=== PATIENT | female | born 1990 | race Caucasian/White ===

== ENCOUNTER 2018-11-09 14:13 | Outpatient (CLI) | payer MEDICAID ==
[~2018-11-09] VITALS: Ht 160 cm; Wt 75.2 kg
[2018-11-09 14:32] VITALS: Ht 160 cm; Wt 75.2 kg
[2018-11-09] MEDS ORDERED: TERBUTALINE 1 MG/ML INJ SC ONE ×2 (16:30→17:00)
--- NOTE | 2018-11-09 17:36 | TRIAGE ---
OB Triage Datetime Report Generated by CPN: 11/09/2018 17:35 Datetime: 11/09/2018 17:28 Stage of : OB Triage Maternal Assessment Level of Consciousness: Fully Conscious DTR's/Clonus: DTRs 1+ Headache: Denies Breath Sounds, Left: Clear and Equal Breath Sounds, Right: Clear and Equal Nausea/Vomiting: Denies RUQ Epigastric Pain: Denies Monitor Mode: External Resting Tone [place]: Relaxed Heart Rate FHR Baseline Rate: 120 Monitor Mode: External US Variability: Moderate 6-25 bpm Accelerations: 15X15 Decelerations: None Category: Category I Pain Assessment Pain Scale: 5 Pain Presence: Intermittent Pain Type: Cramping Pain Location: Back Pain Goal: 3 Vaginal Exam Membrane Status: Intact Datetime: 11/09/2018 17:09 Pain Assessment Pain Scale: 4 Pain Presence: Intermittent Pain Type: Cramping Pain Location: Back Pain Goal: 3 Pain Assessment Comments: PT STATES FEELING UC'S AT THIS POINT ABDOMEN IS SOFT. NO UC'S FELT OR SEE M IN MONITOR. Datetime: 11/09/2018 17:00 Stage of : OB Triage Maternal Assessment Level of Consciousness: Fully Conscious DTR's/Clonus: DTRs 1+ Headache: Denies Breath Sounds, Left: Clear and Equal Breath Sounds, Right: Clear and Equal Nausea/Vomiting: Denies RUQ Epigastric Pain: Denies Monitor Mode: External Resting Tone [place]: Relaxed Heart Rate FHR Baseline Rate: 120 Monitor Mode: External US Variability: Moderate 6-25 bpm Accelerations: 15X15 Decelerations: None Category: Category I Pain Assessment Pain Scale: 5 Pain Presence: Intermittent Pain Type: Cramping Pain Location: Back Pain Goal: 3 Vaginal Exam Membrane Status: Intact Datetime: 11/09/2018 16:00 Stage of : OB Triage Maternal Assessment Level of Consciousness: Fully Conscious DTR's/Clonus: DTRs 1+ Headache: Denies Breath Sounds, Left: Clear and Equal Breath Sounds, Right: Clear and Equal Nausea/Vomiting: Denies RUQ Epigastric Pain: Denies Labor Evaluation Frequency: IRREGULAR Monitor Mode: External Duration (sec)2399: 50-70 Quality: Mild Pattern: Normal: <= 5 Contractions in 10 Minutes Resting Tone [place]: Relaxed Heart Rate FHR Baseline Rate: 115 Monitor Mode: External US Variability: Moderate 6-25 bpm Accelerations: 15X15 Decelerations: None Category: Category I Pain Assessment Pain Scale: 5 Pain Presence: Intermittent Pain Type: Cramping Pain Location: Back Pain Goal: 3 Vaginal Exam Membrane Status: Intact Datetime: 11/09/2018 15:00 Stage of : OB Triage Maternal Assessment Level of Consciousness: Fully Conscious DTR's/Clonus: DTRs 1+ Headache: Denies Breath Sounds, Left: Clear and Equal Breath Sounds, Right: Clear and Equal Nausea/Vomiting: Denies RUQ Epigastric Pain: Denies Monitor Mode: External Duration (sec)2399: 50-70 Quality: Mild Pattern: Normal: <= 5 Contractions in 10 Minutes Resting Tone [place]: Relaxed Heart Rate FHR Baseline Rate: 140 Monitor Mode: External US Variability: Moderate 6-25 bpm Accelerations: 15X15 Decelerations: None Category: Category I Pain Assessment Pain Scale: 5 Pain Presence: Intermittent Pain Type: Cramping Pain Location: Back Pain Goal: 3 Vaginal Exam Membrane Status: Intact Datetime: 11/09/2018 14:44 Stage of : OB Triage Maternal Assessment Level of Consciousness: Fully Conscious DTR's/Clonus: DTRs 1+ Headache: Denies Blurred Vision: No Respiratory Effort: Unlabored Breath Sounds, Left: Clear and Equal Breath Sounds, Right: Clear and Equal Nausea/Vomiting: Denies RUQ Epigastric Pain: Denies Facial Edema: None Labor Evaluation Frequency: X3 Monitor Mode: External Duration (sec)2399: 50-70 Quality: Mild Pattern: Normal: <= 5 Contractions in 10 Minutes Resting Tone [place]: Relaxed Heart Rate FHR Baseline Rate: 140 Monitor Mode: External US Variability: Moderate 6-25 bpm Accelerations: 15X15 Decelerations: None Category: Category I Pain Assessment Pain Scale: 5 Pain Presence: Intermittent Pain Type: Cramping Pain Location: Back Pain Goal: 3 Vaginal Exam Membrane Status: Intact Datetime: 11/09/2018 14:33 Assessment Type: Triage Maternal Assessment Level of Consciousness: Fully Conscious DTR's/Clonus: DTRs 2+; No Clonus Headache: Denies Blurred Vision: No Respiratory Effort: Unlabored; Regular Rhythm; Equal Expansion Breath Sounds, Left: Clear and Equal Breath Sounds, Right: Clear and Equal Nausea/Vomiting: Denies RUQ Epigastric Pain: Denies Lower Extremities Edema: None Degree: None Upper Extremities Edema: None Degree: None Facial Edema: None Fall Risk Assessment History of Falling: (0) No Secondary Diagnosis: (0) No Ambulatory Aid: (0) Bedrest/Nurse Assist IV Therapy: (0) No Gait: (0) Normal/Bedrest/Immobile Mental Status: (0) Oriented to Own Ability Fall Score: 0 Fall Risk Score Definition: No Risk: No action required Datetime: 11/09/2018 14:20 Stage of : OB Triage Datetime: 11/09/2018 14:10 Time of Arrival: 11/09/2018 14:10 EGA: 33.2 Arrived By: Ambulatory Arrived From: Home Chief Complaint: PT CAM EIN C/O UC'S Movement: Present Contractions: Irregular Time Contractions Began: 11/08/2018 13:00 Rupture of Membranes: Denies Vaginal Bleeding: None Vaginal Discharge: Denies Recent Sexual Intercouse: Denies Abdominal Trauma: Not Applicable Patient Complaints: Contractions Additional Patient Complaints: NONE Time Provider Notified: 11/09/2018 14:20 Provider Notified: LAURA Initial Plan: MONITOR, CX LENGHT, BPP
--- NOTE | 2018-11-09 17:40 | PN ---
Triage Information Date/Time November 09, 2018 Reason for visit: Uterine contractions Weeks of Gestation 33w 2d /Para 3/2 Diabetes: none Hypertention: none Additional information Pt with a twin gestation and came in with c/o contractions. She denies any bleeding or leaking. +FM x 2. PMHx: none. PSHX: x 2. NKDA. Objective 100/65 T=98.4 Heart Rate: 130's (twin A; Twin B with a baseline of 140 BPM.) Heart Rate Comments Twin A with accels to 150 BPM and no decels. Twin B with accels to 160 BPM and no decels. Contractions: >10 Minutes Apart Results/Medications Imaging Results Cervical length is 4.4 cm and closed. BPP 8/8 x 2. Fluid levels normal for both. Disposition: Discharge Assessment/Plan A: IUP at 33w 2d, Twin gestation. False labor. P: Pt was given p.o. hydration and terbutaline x 2 and there are no more visible contractions and the pt reports feeling much better and feels comfortable going home. PTL precautions reviewed. Pt to take it easy at home and limit cleaning, etc until she sees her doctor, as scheduled, on 11/13. NICCI SANCHEZ MD Nov 09, 2018 17:40
== END 2018-11-09 17:31 | disposition home or self-care (01) ==
LOC: OBT 14:13 → L-D 14:15 → OBT 17:31
PROVIDERS: ATTEND Specialist
DX: O47.1 False labor at or after 37 completed weeks of gestation (principal); O30.003 Twin pregnancy, unspecified number of placenta and unspecified number of amniotic sacs, third trimester; Z3A.33 33 weeks gestation of pregnancy
CPT/HCPCS: 76817; 76818; J3105; Z7500; G0463

== ENCOUNTER 2018-12-09 18:35 | Inpatient (IN) | payer MEDICAID ==
[~2018-12-09] VITALS: Ht 160 cm; Wt 77.9 kg
[2018-12-09 19:00] VITALS: Ht 160 cm; Wt 77.9 kg
[2018-12-09] MEDS ORDERED: MISOPROSTOL 200 MCG TAB PR PRN ×2 (20:00→22:30)
[2018-12-09] MEDS ORDERED: METHYLERGONOVINE 0.2 MG INJ IM PRN (20:00)
[2018-12-09] MEDS ORDERED: CARBOPROST 250 MCG INJ IM PRN (20:00)
[2018-12-09] MEDS ORDERED: CEFAZOLIN 2 GM/50 ML (PMX) 50 ML IVPB SCH (20:00)
[2018-12-09] MEDS ORDERED: OXYTOCIN 30 UNITS/LR 500 ML IV SCH (20:00)
[2018-12-09] MEDS ORDERED: AMPICILLIN 2 GM/NS (PMX) 100 ML IV SCH (20:00)
[2018-12-09] MEDS ORDERED: OXYTOCIN 30 UNITS/LR 500 ML IV PRN (20:00)
[2018-12-09] MEDS: LACTATED RINGER'S 1,000 ML IV SCH (21:30)
[2018-12-09] MEDS ORDERED: PREN-99 PO (21:31)
[2018-12-09] MEDS ORDERED: FER325 PO (21:31)
--- NOTE | 2018-12-09 21:37 | PREAC ---
Date/Time of Note Date/Time of Note DATE: 12/09/18 TIME: 21:36 Anesthesia Eval and Record Evaluation Time Pre-Procedure Interview DATE: 12/09/18 TIME: 21:36 Age 28 Sex female NPO: 8 hrs Preoperative diagnosis twin Planned procedure c section Past Medical History Past Medical History: Includes : Gestational age: (37.4) Surgery & Anesthesia Issues No known issue Meds Anticoagulation: No Beta [place] within 24 hr: No Reason Beta [place] not given: Pt. not on B-[place] Reported Medications Ferrous Sulfate* (Ferrous Sulfate*) 325 Mg Tabec, 325 MG PO DAILY, TAB 12/09/18 Vit #76/Iron,Carb/FA (Pnv 29-1 Tablet) 1 Each Tablet, 1 EACH PO, TAB 12/09/18 Current Medications Ampicillin 100 ml @ 100 mls/hr ONCE IV Last administered on 12/09/18at 20:33; Admin Dose 100 MLS/HR; Start 12/09/18 at 20:00 Cefazolin Sodium/ Dextrose 50 ml @ 100 mls/hr ONCE IVPB ; Start 12/09/18 at 20:00 Oxytocin/Lactated Ringer's 500 ml @ 125 mls/hr POST IV ; Start 12/09/18 at 20:00 Oxytocin/Lactated Ringer's 500 ml @ 0 mls/hr ONCE PRN IV .VAGINAL BLEEDING; Start 12/09/18 at 20:00 Methylergonovine Maleate (Methergine) 0.2 mg ONCE PRN IM .VAGINAL BLEEDING; Start 12/09/18 at 20:00 Carboprost Tromethamine (Hemabate) 250 mcg ONCE PRN IM .VAGINAL BLEEDING; Start 12/09/18 at 20:00 Misoprostol (Cytotec) 1,000 mcg ONCE PRN IA .VAGINAL BLEEDING; Start 12/09/18 at 20:00 Lactated Ringer's 1,000 ml @ 125 mls/hr Q8H IV Last administered on 12/09/18at 21:30; Admin Dose 125 MLS/HR; Start 12/09/18 at 21:00 Meds reviewed: Yes Allergies Coded Allergies: No Known Allergy (Unverified , 12/09/18) Allergies Reviewed: Yes Labs/Studies Labs Reviewed: Reviewed by anesthesiologist Result Diagram: 12/09/18201412/09/182014 Laboratory Tests 12/09/18 20:15 Blood Bank Test 12/09/18 20:15 Antibody Screen NEGATIVE Blood Type O POSITIVE Rh Immune Globulin Candidate NO test: Positive Studies: ECG (n/a), CXR (n/a) Pre-procedure Exam Airway: Adequate mouth opening Mallampati: Mallampati I Teeth: Normal Lung: Normal Heart: Normal ASA Physical Status ASA physical status: 2 Emergency: None Planned Pain Management Sub-arachniod narcotics Pre-operative Attestations Prior to commencing anesthesia and surgery, the patient was re-evaluated, there was verification of: *The patient's identity *The results of appropriate recent lab work and preoperative vital signs *The above evaluation not changing prior to induction *Anesthetic plan, risk benefits, alternative and complications discussed with patient/family; questions answered; patient/family understands, accepts and wishes to proceed. PABLO MAE MD Dec 09, 2018 21:37
[2018-12-09] MEDS ORDERED: CITRIC ACID/NA CITRATE 30 ML CUP PO ONE (22:00)
[2018-12-09] MEDS ORDERED: LACTATED RINGER'S 1,000 ML IV SCH (22:09)
--- NOTE | 2018-12-09 22:09 | HP ---
Date/Time of Note Date/Time of Note DATE: 12/09/18 TIME: 22:05 OB - History Hx of Present Free Text/Dictation 28 YO with twin gestations (Di-Di), EDC 12/26/2018 with IUP at 37.5 weeks reports to Triage with contractions and headache. Patient also has history of previous deliveries x 2, who desires to have repeat delivery. I discussed with the patient the risks, benefits, indications, and alternatives of procedure including but not limited to risks of infection, bleeding, damage to other organs, bowel, bladder, hernia formation, scar formation, possibility of blood transfusion, possible need for emergency hysterectomy. She was allowed to ask questions. All her questions were answered. Informed consent has been obtained. she denies LOF per vagina or vaginal bleeding or visual changes or RUQ pain. she reports both babies moving well. Care: Good Care Ultrasounds: Normal mid trimester US Obstetrical Complications: Other (twins) Medical Complications: None Past Family/Social History * Past Medical, Surgical, Family and Obstetric Histories reviewed from chart. OB Admission Exam Physical Exam HEENT: WNL Heart: Rhythm Normal Lungs: Clear, Equal Abdomen: WNL Extremities: Normal Reflexes: Normal Cervical Dilatation: Fingertip Last 72 hours Lab Results CBC & BMP 12/09/18 20:15 Liver Function Test 12/09/18 20:15 Alanine Aminotransferase (ALT/SGPT) 13 Albumin 3.6 Alkaline Phosphatase 196 H Aspartate Amino Transf (AST/SGOT) 17 Direct Bilirubin 0.00 Total Protein 6.6 OB Assessment/Plan Other Assessment: Twins at 37.5 weeks with h/o 2 prior deliveries with contractions Plan: Section MIKE AL MD Dec 09, 2018 22:09
[2018-12-09] MEDS ORDERED: morphine SULFATE/PF (10 MG/10 ML) INJ ONE (22:17)
[2018-12-09] MEDS ORDERED: KETOROLAC 30 MG INJ ONE (22:17)
[2018-12-09] MEDS ORDERED: METOCLOPRAMIDE 10 MG INJ ONE (22:17)
[2018-12-09] MEDS ORDERED: ONDANSETRON 4 MG INJ ONE (22:17)
[2018-12-09] MEDS ORDERED: OXYCODONE/ACETAMINOPHEN (5/325) TAB PO PRN (22:30)
[2018-12-09] MEDS ORDERED: NA PHOSPHATE/BIPHOS 133 ML ENEMA PR PRN (22:30)
[2018-12-09] MEDS ORDERED: LANOLIN HPA 1 PKT TOP PRN (22:30)
[2018-12-09] MEDS ORDERED: EPHEDrine SULFATE 50 MG/5 ML SYG ONE (22:47)
[2018-12-09] MEDS ORDERED: EPINEPHrine 0.1 MG/ML SYG ONE (23:05)
[2018-12-09] MEDS ORDERED: OXYTOCIN 30 UNITS/LR 500 ML IV ONE (23:11)
--- NOTE | 2018-12-09 23:28 | OPR ---
Date/Time of Note Date/Time of Note DATE: 12/09/18 TIME: 23:23 Operative Report Procedure Date: Dec 09, 2018 Preoperative Diagnosis Twins IUP 37.5 weeks Labor h/o prior Deliveries x 2 Postoperative Diagnosis Same Operation/Procedure Performed Repeat Delivery Surgeon Wendi Molina MD Graffiti Cleaner Dr. Abhi Kim Anesthesia Type: spinal Estimated Blood Loss: other (800 ml) Transfusion none Specimen placenta Grafts/Implants none Tubes/Drains Osuna Cath Complications none Pt Condition Post Procedure: stable Disposition: PACU Procedure Description The risks, benefits, indications, alternatives of procedure including, but not limited to risk of infection, bleeding, damage to other organs, bowel, bladder, hernia formation, scar formation, possibility of blood transfusions discussed with patient. She was allowed to ask questions. All her questions were an swered. Informed consent was obtained. DESCRIPTION OF PROCEDURE: She was taken to the operating room. Spinal anesthesia was induced. She was prepped and draped in the usual sterile fashion. Surgical time out one. Anesthesia was tested to be adequate. With permission from anesthesiologist, a knife was used to make a Pfannenstiel skin incision. The incision was taken down in layers. The fascia was cut, undermined and from the underlying muscle using sharp and blunt dissection. All the bleeders were cauterized. Peritoneum was entered bluntly. A low transverse incision was developed over the uterus. Amniotic fluid was clear and adequate for both twins. Twin A was delivered in vertex presentation without any difficulty. Twin B was delivered Breech without any difficulty. The cords were clamped and cut, handed to awaiting team. Placenta was then delivered. Uterus was exteriorized, wrapped around a moist lap. Inside uterus was cleaned using a dry lap. All residual membranes were removed. The uterine incision was then closed using #1 Monocryl in 2 layers. The uterus was inserted back inside the abdominal cavity. Irrigation was done carefully. Careful evaluation of the uterine incision revealed no further bleeding. The peritoneum and rectus muscles and fascia were evaluated. All bleeders cauterized. Peritoneum was closed using 2-0 Monocryl. At this time, the count was correct. Rectus muscle was reapproximated using 2-0 Monocryl. Rectus fascia was closed using #1 Vicryl. Subcutaneous tissue was cleaned and irrigated. All bleeders cauterized and the skin closed using 4-0 Monocryl. All counts correct. WENDI MOLINA MD Dec 09, 2018 23:28
[2018-12-09] MEDS ORDERED: ONDANSETRON 4 MG INJ IV PRN ×2 (23:30)
[2018-12-09] MEDS ORDERED: MEPERIDINE 25 MG INJ IV PRN (23:30)
[2018-12-09] MEDS ORDERED: DIPHENHYDRAMINE 50 MG INJ IV PRN ×2 (23:30)
[2018-12-09] MEDS ORDERED: KETOROLAC 30 MG INJ IV PRN (23:30)
[2018-12-09] MEDS ORDERED: NALOXONE (0.4 MG/ML) INJ IV PRN (23:30)
[2018-12-09] MEDS ORDERED: morphine (1 MG/ML) 10ML SYRINGE IV PRN ×3 (23:30)
[2018-12-09] MEDS ORDERED: morphine 2 MG INJ IV PRN ×3 (23:30)
[2018-12-10] MEDS ORDERED: IBUPROFEN 600 MG TAB PO SCH
[2018-12-10 02:50] VITALS: BP 99/64; PULSE 58; RESP 18
[2018-12-10] MEDS: LACTATED RINGER'S 1,000 ML IV SCH ×3 (05:00→17:27)
[2018-12-10] MEDS: KETOROLAC 30 MG INJ IV PRN ×2 (06:40→14:04)
[2018-12-10 08:00] VITALS: BP 96/53; PULSE 76; RESP 20
--- NOTE | 2018-12-10 08:20 | PAC ---
Date/Time of Note Date/Time of Note DATE: 12/10/18 TIME: 08:19 Post-Anesthesia Notes Post-Anesthesia Note Last documented vital signs Vital Signs Date Temp Pulse Resp B/P (MAP) Pulse Ox O2 O2 Flow FiO2 Time Delivery Rate 12/10/18 98.4 58 18 99/64 (76) 98 Room Air 02:50 Activity: WNL Respiratory function: WNL Cardiovascular function: WNL Mental status: Baseline Pain reasonably controlled: Yes Hydration appropriate: Yes Nausea/Vomiting absent: No PABLO MAE MD December 10, 2018 08:20
--- NOTE | 2018-12-10 08:20 | OPPN ---
Date/Time of Note Date/Time of Note DATE: 12/10/18 TIME: 08:20 Anesthesia Follow up Anesthesia Follow up Last documented vital signs Vital Signs Date Temp Pulse Resp B/P (MAP) Pulse Ox O2 O2 Flow FiO2 Time Delivery Rate 12/10/18 98.4 58 18 99/64 (76) 98 Room Air 02:50 Respiratory function: WNL Cardiovascular function: WNL Comments A 28 year female pod#1 under spinal and duramorph for post op pain. No pain, itching, N/V, headache, neural deficit. PABLO MAE MD December 10, 2018 08:20
[2018-12-10] MEDS: SENNA/DOCUSATE NA (8.6MG/50MG) TAB PO SCH ×2 (09:37→21:26)
[2018-12-10 12:00] VITALS: BP 104/71; PULSE 67; RESP 19
[2018-12-10 16:00] VITALS: BP 102/64; PULSE 62; RESP 20
[2018-12-10 20:00] VITALS: BP 95/62; PULSE 75; RESP 18
--- NOTE | 2018-12-10 20:56 | PN ---
Date/Time of Note Date/Time of Note DATE: 12/10/18 TIME: 20:51 OB Subjective Subjective Subjective POD#1 Patient is doing well. She denies nausea, vomiting, shortness of breath, chest pain, headache. She has been ambulating without difficulty, tolerating regular diet. Pain is well controlled on current medications OB Objective Objective Objective Vital Signs Date Temp Pulse Resp B/P (MAP) Pulse Ox O2 O2 Flow FiO2 Time Delivery Rate 12/10/18 98.6 62 20 102/64 98 Room Air 16:00 (77) General: AAO X 3, comfortable, NAD, appropriate mood and affect. ABD: +BS. Soft, non-tender. Uterus 2 cm below umbilicus Incision: Clear, dry, intact. No erythema, drainage or induration. Staple in place * Flank: No CVA tenderness (B/L) LE: Mild edema. No clubbing, cyanosis, thigh or calf tenderness (B/L). Homans 'sign is negative OB Assessment/Plan Other plan: 28 years old 3 para 2-0-0-4 (current with diamniotic/dichorionic twin) s/p repeat delivery delivery POD#1 - AF, VSS - Babies are doing well, at bed side. She is bonding well - Continue care MARIA INES RANKIN December 10, 2018 20:56
[2018-12-10] MEDS: IBUPROFEN 600 MG TAB PO SCH (23:41)
[2018-12-11 04:00] VITALS: BP 88/54; PULSE 64; RESP 20
[2018-12-11] MEDS: LACTATED RINGER'S 1,000 ML IV SCH ×3 (05:00→21:00)
[2018-12-11] MEDS: IBUPROFEN 600 MG TAB PO SCH ×4 (05:57→23:45)
--- NOTE | 2018-12-11 07:58 | QN ---
Documentation Comment s/p c/s Subjective: no complaint Objective: Afebrile, VSS NAD A&O Abdomen: soft, appropriate tender Incision: no sign of bleeding/infection mild lochia Extremity: 1+ edema bilaterally Assessment: S/p Repeat C/S with twins. POD # 2 Recovering Well Plan: current care MIKE AL MD December 11, 2018 07:58
[2018-12-11 08:00] VITALS: BP 88/57; PULSE 68; RESP 16
[2018-12-11] MEDS: SENNA/DOCUSATE NA (8.6MG/50MG) TAB PO SCH ×2 (08:31→20:47)
[2018-12-11] MEDS: OXYCODONE/ACETAMINOPHEN (5/325) TAB PO PRN ×3 (08:32→19:47)
--- NOTE | 2018-12-11 09:41 | DS ---
Date/Time of Note Date/Time of Note DATE: 12/11/18 TIME: 09:41 Obstetrical Discharge Record Final Diagnosis Final Diagnosis: Term delivered Section Section: Repeat Complications Multiple Gestation Augmentation: No Induction: No Rupture of Membranes: No Condition on Discharge Physical Assessment Voiding: Yes Bowel Movement: Yes Breast: Soft, non-tender, Filling Fundus: Firm Abdomen and Incision: soft, appropriate tenderness Calf Tenderness: No Patient Condition: Good MIKE AL MD December 11, 2018 09:41
[2018-12-11 16:00] VITALS: BP 105/65; PULSE 66; RESP 18
[2018-12-11 19:20] VITALS: BP 111/79; PULSE 65; RESP 19
[2018-12-12 04:00] VITALS: BP 100/67; PULSE 59; RESP 18
[2018-12-12] MEDS: LACTATED RINGER'S 1,000 ML IV SCH (05:00)
[2018-12-12] MEDS: IBUPROFEN 600 MG TAB PO SCH ×2 (05:38→13:39)
[2018-12-12 08:00] VITALS: BP 93/63; PULSE 68; RESP 18
[2018-12-12] MEDS: OXYCODONE/ACETAMINOPHEN (5/325) TAB PO PRN (08:27)
[2018-12-12] MEDS: SENNA/DOCUSATE NA (8.6MG/50MG) TAB PO SCH (08:27)
[2018-12-12] MEDS ORDERED: DIPHTH/TET/ACEL PERTUSS (ADULT) 0.5 ML VIAL IM* ONE (09:00)
[2018-12-12] MEDS ORDERED: MEASLES,MUMPS,RUBELLA VACCINE INJ SC* ONE (09:00)
--- NOTE | 2018-12-13 16:53 | DELSUM ---
Delivery Summary A-C Datetime Report Generated by CPN: 12/13/2018 16:53 DELIVERY PERSONNEL Keyboard Specialist: Brandt, Nirali MATERNAL INFORMATION Delivery Anesthesia: Spinal Medications in Delivery: SEE ANESTHESIA RECORD Delivery QBL (ml): 800 Placenta Cultured: No Maternal Complications: None LABOR SUMMARY EDC: 12/26/2018 00:00 No. Babies in Womb: 2 Attempted: No Labor Anesthesia: None LABOR INFORMATION Reason for Induction: Not Applicable Oxytocin: N/A Group B Beta Strep: Negative Antibiotics # of Doses: X2 Antibiotics Time of Last Dose: 12/09/2018 22:24 Steroids Given: None Reason Steroids Not Administered: Not Applicable MEMBRANES Membranes Rupture Method: Artificial Rupture of Membranes: 12/09/2018 22:49 Length of Rupture (hr): 0.02 Amniotic Fluid Color: Clear Amniotic Fluid Amount: Moderate Amniotic Fluid Odor: None STAGES OF LABOR Stage 3 hr: 0 Stage 3 min: 5 CSECTION DELIVERY Primary Indication: Repeat Elective Secondary Indication: N/A CSection Urgency: Elective CSection Incidence: Repeat Labor: Labor Elective: Elective CSection Incision: Lower Uterine Transverse BABY A INFORMATION Delivery Date/Time: 12/09/2018 22:50 Method of Delivery: Born in Route : No : N/A Forceps: N/A Vacuum Extraction: N/A Shoulder Dystocia : N/A SHOULDER DYSTOCIA BABY A Delivery Date/Time: 12/09/2018 22:50 PRESENTATION/POSITION BABY A Presentation: Cephalic Cephalic Presentation: Vertex Vertex Position: Left Occipital Anterior Breech Presentation: N/A PLACENTA INFORMATION BABY A Placenta Delivery Time : 12/09/2018 22:55 Placenta Method of Delivery: Expressed Placenta Status: Delivered SCORES BABY A Heart Rate 1 min: >100 bpm Resp Effort 1 min: Good Cry Reflex Irritability 1 min: Cough/Sneeze/Pulls Away Muscle Tone 1 min: Active Motion Color 1 min: Blue/Pale Resuscitation Effort 1 min: Tactile Stimulation; PPV/NCPAP SCORE 1 MIN: 8 Heart Rate 5 min: >100 bpm Resp Effort 5 min: Good Cry Reflex Irritability 5 min: Cough/Sneeze/Pulls Away Muscle Tone 5 min: Active Motion Color 5 min: Body [place], Extremit Blue Resuscitation Effort 5 min: Tactile Stimulation SCORE 5 MIN: 9 INFANT INFORMATION BABY A Gestational Age at Delivery: 37.4 Gestational Status: Early Term- 37- 38.6 Weeks Infant Outcome : Liveborn Infant Condition : Stable Infant Sex: Female IDENTIFICATION/MEDS BABY A ID Band Number: [id number] ID Band Location: Right Leg; Left Arm Sensor Applied: Yes Sensor Number: [id number] Sensor Location : Cord Clamp Vitamin K Given : Not Given Erythromycin Given: Not Given WEIGHT/LENGTH BABY A Birthweight (gm): 2815 Infant Weight (lb): 6 Weight (oz): 3 Infant Length (in): 18.75 Infant Length (cm): 47.63 CORD INFORMATION BABY A No. Cord Vessels: 3 Nuchal Cord : N/A Nuchal Cord- Other: X1 AROUND R LEG Cord Blood Taken: Yes Infant Suction: Mouth; Nose ASSESSMENT BABY A Infant Complications: Multiple Variable Decels Physical Findings at Delivery: Within Normal Limits Respirations: Appears Normal Routing Equipment Tender/ALS Called : Yes Infant Care By: ARNALDO CARY Transferred To: Remains with Mother BABY B INFORMATION Infant Delivery Date/Time: 12/09/2018 22:51 Method of Delivery : Born in Route : No : N/A Forceps : N/A Vacuum Extraction: N/A Shoulder Dystocia : N/A SHOULDER DYSTOCIA BABY B Infant Delivery Date/Time: 12/09/2018 22:51 PRESENTATION/POSITION BABY B Presentation : Breech Cephalic Position : N/A Breech Position: Balaji ROM/PLACENTA INFO BABY B Rupture of Membranes: 12/09/2018 22:51 Length of Rupture (hr): 0.00 Placenta Delivery Time : 12/09/2018 22:55 Placenta Method of Delivery: Expressed Placental Status : Delivered SCORES BABY B Heart Rate 1 min: >100 bpm Resp Effort 1 min: Good Cry Reflex Irritability 1 min: Cough/Sneeze/Pulls Away Muscle Tone 1 min: Active Motion Color 1 min: Body [place], Extremit Blue Resuscitation Effort 1 min: Tactile Stimulation SCORE 1 MIN: 9 Heart Rate 5 min: >100 bpm Resp Effort 5 min: Good Cry Reflex Irritability 5 min: Cough/Sneeze/Pulls Away Muscle Tone 5 min: Active Motion Color 5 min: Body [place], Extremit Blue Resuscitation Effort 5 min: Tactile Stimulation SCORE 5 MIN: 9 INFORMATION BABY B Gestational Age at Delivery: 37.4 Gestational Status : Early Term- 37- 38.6 Weeks Infant Outcome : Liveborn Infant Condition : Stable Infant Sex : Female IDENTIFICATION/MEDS BABY B ID Band Number : [id number] ID Band Location : Right Leg; Left Arm Sensor Applied: Yes Sensor Number : [id number] Sensor Location : Cord Clamp Vitamin K Given : Not Given Erythromycin Given : Not Given WEIGHT/LENGTH BABY B Birthweight (gm): 2560 Infant Weight (lb) : 5 Weight (oz): 10 Infant Length (in): 18.50 Length (cm): 46.99 CORD INFORMATION BABY B No. Cord Vessels : 3 Nuchal Cord : N/A Cord Blood Taken : Yes Infant Suction : Mouth; Nose ASSESSMENT BABY B Complications : None Physical Findings at Delivery: Within Normal Limits Respirations : Appears Normal Routing Equipment Tender/ALS Called : Yes Infant Care By : ARNALDO CARYpantograph engraver To: Remains with Mother
== END 2018-12-12 15:05 | disposition home or self-care (01) | DRG 788 ==
LOC: OBT 18:35 → L-D 18:36 → OBT 19:50 → L-D 22:16 → PP1 12-10 02:02
PROVIDERS: ADMIT Specialist; ATTEND Specialist
PROC: 10D00Z1 Extraction of Products of Conception, Low, Open Approach (ICD-10-PCS; principal; 2018-12-09)
DX: O30.043 Twin pregnancy, dichorionic/diamniotic, third trimester (principal); O32.1XX0 Maternal care for breech presentation, not applicable or unspecified; O34.211 Maternal care for low transverse scar from previous cesarean delivery; Z3A.37 37 weeks gestation of pregnancy; Z37.2 Twins, both liveborn
CPT/HCPCS: 80053; 81001; 84560; 85025; 85384; 85610; 85730; 86592; 86850; 86900; 86901; 87340; 90715; 99464; G0463; J0171; J0290; J0690; J1200; J1885; J2274; J2405; J2590; J2765; J7120